=== PATIENT | male | born 1985 | race Hispanic/Latino ===

== ENCOUNTER 2019-05-25 14:41 | Emergency (ER) | payer SELFPAY ==
--- NOTE | 2019-05-25 15:09 | Emergency Department Report ---
Blank Doc - Documentation Documentation: This is a 34-year-old male that presents with upper lip lac. This initial assessment/diagnostic orders/clinical plan/treatment(s) is/are subject to change based on patient's health status, clinical progression and re- assessment by fellow clinical providers in the ED. Further treatment and workup at subsequent clinical providers discretion. Patient/guardians urged not to elope from the ED as their condition may be serious if not clinically assessed and managed. Initial orders include: 1- Patient sent to [facility] for further evaluation and treatment
[2019-05-25 15:11] VITALS: BP 124/88
[2019-05-25] MEDS ORDERED: TORADOL IM ONE (18:02)
--- NOTE | 2019-05-25 18:04 | Emergency Department Report ---
ED Laceration HPI - HPI Chief Complaint: Wound/Laceration Stated Complaint: GASH ON LIP Time Seen by Provider: 05/25/19 15:08 Occurred When: Today Severity: mild Tetanus Status: Up to Date Laceration Symptoms: Yes Pain, No Foreign Body Sensation, No Numbness, No Weakness Other History: This is a 34-year-old male with no prior medical history of present see ED stay he was working on his truck when he accidentally got injured to his upper lip. She states that this incident happened about 3 hours ago prior to arrival. Patient states he had minimal bleeding to his upper lip area. ED Review of Systems ROS: Stated complaint: GASH ON LIP Other details as noted in HPI Comment: All other systems reviewed and negative ED Past Medical Hx - Past Medical History Previous Medical History?: No - Surgical History Past Surgical History?: Yes Additional Surgical History: Tonsilectomy - Social History Smoking Status: Never Smoker Substance Use Type: None - Medications Home Medications: Home Medications Medication Instructions Recorded Confirmed Last Taken Type Ibuprofen [Motrin] 800 mg PO Q8HR #30 tablet 05/25/19 Unknown Rx cephALEXin [Keflex] 500 mg PO Q12HR #6 cap 05/25/19 Unknown Rx Laceration Physical Exam - Exam General: Vital signs noted. No distress. Alert and acting appropriately. Wound Length (cm): 0 (.5) Laceration Location: Other (immediate upper lip) Laceration Exam: Yes Normal Distal CMS, No Foreign Body, No Exposed Tendon, Vessel, or Nerve, No Tendon Injury ED Course Vital Signs 05/25/19 15:09 Temperature 98.5 F Pulse Rate 68 Respiratory 18 Rate Blood Pressure 124/88 O2 Sat by Pulse 97 Oximetry ED Medical Decision Making - Medical Decision Making [id number] male presents with mid upper lip small laceration. Laceration was flushed and cleaned with normal saline he was given Toradol for pain in the ED Laceration was approximated with Dermabond. he tolerated procedure well with no peripheral issues. No complications. Discussed follow-up with primary care physician In 3-5 days Vital signs are normal patient is in no acute distress. Critical care attestation.: If time is entered above; I have spent that time in minutes in the direct care of this critically ill patient, excluding procedure time. ED Disposition Clinical Impression: Laceration of vermilion border of upper lip without complication Disposition: [id number] TO HOME OR SELFCARE Is pt being admited?: No Does the pt Need Aspirin: No Condition: Stable Instructions: Laceration (ED), Skin Adhesive Care (ED) Additional Instructions: Make sure to follow up with the primary care physician as discussed. Take all your medications as you've been prescribed. If you have any worsening symptoms or develop new symptoms please return to ED immediately. Prescriptions: cephALEXin [Keflex] 500 mg PO Q12HR #6 cap Ibuprofen [Motrin] 800 mg PO Q8HR #30 tablet Referrals: [facility] [Provider Group] - 3-5 Days Forms: Work/School Release Form(ED) Time of Disposition: 18:38
== END 2019-05-25 19:19 | disposition home or self-care (01) ==
LOC: ED 14:41
DX: S01.511A Laceration without foreign body of lip, initial encounter (principal); Z98.890 Other specified postprocedural states; Z79.899 Other long term (current) drug therapy; X58.XXXA Exposure to other specified factors, initial encounter; Y93.89 Activity, other specified; Y92.89 Other specified places as the place of occurrence of the external cause; Y99.8 Other external cause status
CPT/HCPCS: 12011; 96372; 99282; J1885